=== PATIENT | female | born 1960 | race Caucasian/White ===

== ENCOUNTER 2021-03-04 18:06 | Emergency (ER) | payer BC, OTHER ==
--- OUTSIDE RECORDS SUMMARY | 2021-03-04 18:10 | XMS REPORT | Continuity of Care Document ---
:1960 Author Organization [facility] t Address [address] [place] [address] Care Team Providers Name Role Phone Asked, Pcp Primary Care Physician Unavailable Eduardo Hairston MD Attending Clinician Daysi RN Attending Clinician Unavailable Baudilio Owen MD Attending Clinician Mathieu AGUILAR Attending Clinician Unavailable Radiology Attending Clinician Unavailable José Manuel MCKEON Attending Clinician Unavailable Doctor Unassigned, Name Attending Clinician Unavailable Pcp, Does Not Have A Attending Clinician Nurse, Urgent Attending Clinician Unavailable Lab, Fam Pob I Attending Clinician Unavailable MANAN Attending Clinician Unavailable Payers Payer Name Policy Type Policy Effective Expiration Source Number Date Date [facility] [id number] 2019 [place] dist CHOICE/CHOICE 00:00:00 Hospital [id number] 2019-Prese ntHMO/PPO Problems Condition Condition Condition Status Onset Resolution Last Treating Co mments Source Name Details Category Date Date Treatment Clinician Date Functional Functional Disease Active 2018-07 M ethodi diarrhea diarrhea 09-15 00:00: Hospita 00 l History of History of Disease Active 2018-07 M ethodi Nelson-en-Y Nelson-en-Y 09-15 gastric gastric 00:00: Hospita bypass bypass 00 l Hx Hx Disease Active 2018-07 Methodi laparoscop laparoscop 09-15 ic ic 00:00: Hospita cholecyste cholecyste 00 l ctomy ctomy Common Common Disease Active 2018-07 Methodi bile duct bile duct 09-15 st dilation dilation 00:00: Hospit a 00 l Dysesthesi Dysesthesi Disease Active 0 M ethodi a of a of 02-27 multiple multiple 00:00: Hospit a sites sites 00 l Constituti Constituti Disease Active M ethodi onal onal 02-27 eosinophil eosinophil 00:00: Ho spita ia ia 00 l 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 00:00: Hospit a 00 l Pruritic Pruritic Disease Active 2015-07 Metho di disorder disorder 0-13 st 00:00: Hospita 00 l Ptosis of Ptosis of Disease Active 2015-07 Met hodi left left 0-13 st eyelid eyelid 00:00: Hospita 00 l Family Problem Active 2015-10-27 Memor ia history of 03:09:28 l malignant Family Angelique nn neoplasm history of of breast malignant neoplasm of breast Active Problem 10/27/2015 Carlos A Breast Encounter Problem Active 2015-10-27 Me moria for 03:09:28 l screening [place] mammogram Encounter for for malignant screening neoplasm mammogram of breast for malignant neoplasm of breast Active Problem 10/27/2015 Carlos A Breast Dense Problem Active 2015-10-27 Memor ia breast 03:09:28 l Dense [place] breast Active Problem 10/27/2015 [place] [facility] Allergies, Adverse Reactions, Alerts Allergy Allergy Status Severity Reaction(s) Onset Inactive Treating Comm ents Source Name Type Date Date Clinician Ondanset Propensi Active Method i fabrice ty to 02-08 st adverse 00:00: Hospita reaction 00 l s to drug Mirtazap Propensi Active Other (See 2015-07 Va thodi ine ty to Comments) 0 st adverse 00:00: Hospita reaction 00 l s to drug Family History Family Member Diagnosis Comments Start Date Stop Date Source Natural father Stroke [facility] Maternal aunt Breast cancer [facility] Maternal Other Congregational grandmother [facility] Natural mother Colon cancer [facility] Natural mother Colon polyps [facility] Natural mother Heart disease [facility] Family member [facility]ophageal cancer [facility] Family member Gallbladder disease [facility] Family member Pancreatic cancer [facility] Family member Stomach cancer [facility] Social History Social Habit Start Date Stop Date Quantity Comments Source Exposure to Not sure [facility] SARS-CoV-2 [facility] (event) Tobacco use and 2021-02-09 2021-02-09 Never used [facility] exposure 00:00:00 00:00:00 Hospital Alcohol intake 2021-02-09 2021-02-09 Ex-drinker [facility] 00:00:00 00:00:00 (finding) Hospital Alcohol Comment 2016-05-05 2016-05-05 occasional; Methodis t 00:00:00 00:00:00 rarely fruity Hospital drinks Baptism: 2015-10-19 2015-10-19 [facility] 00:00:00 00:00:00 Sex Ass[birth year] At [birth year] [facility] 00:00:00 00:00:00 [facility] Smoking Status Start Date Stop Date Source Never smoker [facility] Medications Ordered Filled Start Stop Current Ordering Indication Dosage Frequency Signature Comments Components Source Medication Medication Date Date Medication? Clinician (SIG) Name Name dronabinoL 2020- Yes [id number] 5mg Q.[id number] Take 1 Methodi (MARINOL) 5 02-13 08- [id number] capsule (5 st MG capsule 00:00: 04:59 3D mg total) H ospita 00 :00 by mouth 3 l (three) times a day before meals for 30 days. dronabinoL 2020- No [id number] 5mg Q.[id number] Take 1 Methodi (MARINOL) 5 02-08 07- [id number] capsule (5 st MG capsule 00:00: 00:00 3D mg total) H ospita 00 :00 by mouth 3 l (three) times a day before meals for 180 days. ascorbic Yes 1{tbl} QD Take 1 Metho di acid 7-[address] (VITAMIN C 19:57: mouth Hospit a ORAL) 32 nightly. l denosumab Yes Prolia 60 Met hodi (PROLIA) 60 7-12 mg/mL st mg/mL 19:57: subcutaneo Hospit a syringe 32 us syringe l syringe venlafaxine Yes 75mg QD Take 75 mg Methodi (EFFEXOR) 7-[address] 75 MG 19:57: daily. Hospita tablet 32 l busPIRone 0 Yes QD daily. Method i (BUSPAR) 15 7-12 st MG tablet 19:57: Hospita 32 l furosemide Yes 40mg QD 40 mg Method i (LASIX) 40 7-[address] mg tablet 19:57: Hospita 32 l ergocalcife Yes [id number] Q7D 50,000 Me thodi rol 7-[address] (VITAMIN 19:57: a week. Hospit a D2) 50,000 32 l unit capsule MULTIVIT-PA Yes 1 tab qd Me thodi NERALS/FERR 7-12 st OUS FUM 19:57: Hospita (MULTI 32 l VITAMIN ORAL) fexofenadin Yes 180mg QD 180 mg Met hodi e (JEM) 7-[address] 180 MG 19:57: Hospita tablet 32 l levothyroxi Yes 150ug QD Take 150 M ethodi ne 7-[address] (SYNTHROID, 19:57: mouth Hospi ta LEVOXYL) 32 every l 150 mcg morning. tablet promethazin Yes 25mg Take 25 mg Methodi e 7-[address] (PHENERGAN) 19:57: as needed H ospita 25 MG 32 for nausea l tablet or vomiting. Lactobac 2020- No Take by Metho di no.41/Bifid 7-12 07-[address] obact no.7 19:57: 00:00 Hospit a (PROBIOTIC- 32 :00 l 10 ORAL) citalopram No 40mg QD Take 40 mg Methodi (CeleXA) 40 7-12 07-[address] MG tablet 19:57: 00:00 daily. Hospi ta 32 :00 l granisetron [id number] 1mg Q12H Take 1 Methodi HCL 2-02 02-04 tablet (1 st (KYTRIL) 1 00:00: 05:59 mg total) H ospita mg tablet 00 :00 by mouth l every 12 (twelve) hours as needed for nausea or vomiting. dronabinoL 2019-07 [id number] 5mg Q.[id number] Take 1 Methodi (MARINOL) 5 217 07-17 [id number] capsule (5 st MG capsule 00:00: 00:00 3D mg total) H ospita 00 :00 by mouth 3 l (three) times a day before meals for 180 days. modafiniL No [id number] 200mg QD Take 1 Methodi (PROVIGIL) 8 02- tablet st 200 MG 00:00: 05:59 (200 mg Hospita tablet 00 :00 total) by l mouth daily for 180 days. dronabinoL No [id number] 5mg Q.5D Take 1 Method[facility] (MARINOL) 5 03-13-17 capsule (5 s t MG capsule 00:00: 00:00 mg total) H ospita 00 :00 by mouth 2 l (two) times a day before meals for 180 days. colesevelam Yes 1875mg Q.5D Take 3 Me thodi (WELCHOL) 5-[address] 625 mg 00:00: (1,875 mg Hospit a tablet 00 total) by l mouth 2 (two) times a day with meals. dronabinoL No [id number] 5mg Q.5D Take 1 Methodi (MARINOL) 5 2-20 08-21 capsule (5 s t MG capsule 00:00: 00:00 mg total) H ospita 00 :00 by mouth 2 l (two) times a day before meals for 180 days. granisetron 2018-07 [id number] 1mg Q12H Take 1 Methodi HCl 2-30 02-02 tablet (1 st (KYTRIL) 1 00:00: 00:00 mg total) H ospita mg tablet 00 :00 by mouth l every 12 (twelve) hours as needed for nausea or vomiting. OSPHENA 60 2018-07 Yes 60mg QD Take 60 mg M ethodi mg tablet 1-[address] 00:00: daily. Hospita 00 l fluticasone Yes SPRAY 2 Met hodi propionate 6-[address] (FLONASE) 00:00: EACH Hospita 50 00 NOSTRIL l mcg/actuati ONCE DAILY on nasal spray ALPRAZolam Yes as needed. M ethodi (XANAX) 1-23 st 0.25 MG 00:00: Hospita tablet 00 l Estradiol No Laila 1 tablet Me moria 4-05 Carlos A l 03:09: Gaurang Estradiol No Laila 1 tablet Me moria 4-05 Carlos A l 03:09: Vital Signs Vital Name Observation Time Observation Value Comments Source Systolic blood 2021-02-01 19:54:00 111 mm[Hg] [facility] pressure Diastolic blood 2021-02-01 19:54:00 51 mm[Hg] [facility] pressure Heart rate 2021-02-01 19:54:00 82 /min [facility] Body temperature 2021-02-01 19:54:00 36.22 Mine [facility] Body height 2021-02-01 19:54:00 160 cm [facility] Body weight 2021-02-01 19:54:00 63.05 kg [facility] BMI 2021-02-01 19:54:00 24.62 kg/m2 [facility] Heart Rate 2015-10-19 14:30:00 [facility] Diastolic (mm Hg) 2015-10-19 14:30:00 [facility] Systolic (mm Hg) 2015-10-19 14:30:00 Dominic ria Gaurang Weight 2015-10-19 14:30:00 [facility] Procedures Procedure Date / Time Performed Performing Clinician [facility] e PHOSPHORUS LEVEL 2021-02-01 21:12:[address] [facility] MAGNESIUM LEVEL 2021-02-01 21:12:00 [place], [facility] BASIC METABOLIC PANEL 2021-02-01 21:12:00 [facility] VOLTAGE-GATED POTASSIUM 2021-02-01 21:12:00 [facility] CHANNEL (VGKC) AB Plan of Care Planned Activity Planned Date Details Comments Source Future Scheduled Test COVID-19 VACCINE (1) [facility] [code = COVID-19 VACCINE (1)] Future Scheduled Test Hepatitis C screening [facility] (procedure) [code = 571355052] Future Scheduled Test Screening for malignant [facility] neoplasm of cervix (procedure) [code = 117154039] Future Scheduled Test BREAST CANCER SCREENING [facility] [code = BREAST CANCER SCREENING] Future Scheduled Test COLONOSCOPY SCREENING [facility] [code = COLONOSCOPY SCREENING] Future Scheduled Test SHINGLES VACCINES (#1) [facility] [code = SHINGLES VACCINES (#1)] Future Scheduled Test INFLUENZA VACCINE [code [facility] = INFLUENZA VACCINE] Encounters Start End Encounter Admission Attending Care Care Encounter Source Date/Time Date/Time Type Type Clinicians Facility Department ID 2021-02-12 2021-02-12 Travel 1.2.840.1 [id number] Methodi 00:00:00 00:00:[address] 3.430.2.7 0.2.7.3.698 Ho spita .3.276268 084.8 l .8 2021-02-12 2021-02-12 Thomas Hairston 1.2.840.1 [id number] Methodi 00:00:00 00:00:[address] Eduardo 3.430.2.7 Hospit a .3.883001 l .8 2021-02-06 2021-02-06 Thomas Hairston 1.2.840.1 [id number] Methodi 00:00:00 00:00:[address] Eduardo 3.430.2.7 Hospit a .3.830235 l .8 2021-02-01 2021-02-01 Hodan Hairston 1.2.840.1 [id number] 1017 Methodi 16:14:47 16:19:[address] Eduardo 3.430.2.7 Hospit a .3.843042 l .8 2021-02-01 2021-02-01 Office Yovanny, 1.2.840.1 [id number] 8387 Methodi 14:42:21 15:56:17 Visit Joseph 08871.1.[address] Eduardo 3.430.2.7 Hospit a .3.268555 l .8 2021-02-01 2021-02-01 Documentat Yovanny, 1.2.840.1 [id number] Methodi 00:00:00 00:00:00 ion Joseph 51604.1.[address] Eduardo 3.430.2.7 Hospit a .3.004662 l .8 2021-02-01 2021-02-01 Travel 1.2.840.1 1.2.228.496 7525 [id number] Methodi 00:00:00 00:00:[address] 3.430.2.7 0.2.7.3.698 Ho spita .3.655853 084.8 l .8 2021-02-01 2021-02-01 Outpatient [facility] [id number] [place] 00:00:00 00:00:00 JOSEPH [address] 2021-02-01 2021-02-01 Outpatient [facility] [id number] [place] 00:00:00 00:00:00 JOSEPH [address] 2021-02-01 2021-02-01 Outpatient [facility] [id number] 264 [place] 00:00:00 00:00:00 JOSEPH [address] 2020-12-31 2020-12-31 Travel 1.2.840.1 1.2.593.739 [id number] Methodi 00:00:00 00:00:[address] 3.430.2.7 0.2.7.3.698 Ho spita .3.909944 084.8 l .8 2020-12-31 2020-12-31 Telephone Yovanny, 1.2.840.1 [id number] Methodi 00:00:00 00:00:[address] Eduardo 3.430.2.7 Hospit a .3.697481 l .8 2020-11-23 2020-11-23 Travel 1.2.840.1 1.2.369.715 9005 [id number] Methodi 00:00:00 00:00:[address] 3.430.2.7 0.2.7.3.698 Ho spita .3.203697 084.8 l .8 2020-11-12 2020-11-12 Documentat Daysi, 1.2.840.1 [id number] [id number] Methodi 00:00:00 00:00:00 ion Tato 30572.1.[address] 3.430.2.7 Hospit a .3.461065 l .8 2020-10-15 2020-10-15 Telemedici Sherin, 1.2.840.1 [id number] Methodi 09:57:05 10:11:28 antonieta Astudillo [address]254.1.[address] 3.430.2.7 Hospit a .3.616064 l .8 2020-10-15 2020-10-15 Outpatient SHERIN [facility] [id number] [place] 00:00:00 00:00:00 SHADI [address] 2020-09-28 2020-09-28 Telephone Yovanny, 1.2.840.1 [id number] Methodi 00:00:00 00:00:[address] Eduardo 3.430.2.7 Hospit a .3.199961 l .8 2020-09-14 2020-09-14 Travel 1.2.840.1 1.2.756.841 1629 [id number] Methodi 00:00:00 00:00:[address] 3.430.2.7 0.2.7.3.698 Ho spita .3.466452 084.8 l .8 2020-09-07 2020-09-07 Telemedici Sherin 1.2.840.1 [id number] Methodi 09:38:12 10:06:19 antonieta Shadi Astudillo [address]506.1.[address] 3.430.2.7 Hospit a .3.759674 l .8 2020-09-07 2020-09-07 Outpatient [facility] [id number] [place] 00:00:00 00:00:00 SHADI [address] 2020-08-26 2020-08-26 Travel 1.2.840.1 1.2.736.008 0357 [id number] Methodi 00:00:00 00:00:[address] 3.430.2.7 0.2.7.3.698 Ho spita .3.888484 084.8 l .8 2020-08-25 2020-08-25 Eddy Conner.2.840.1 [id number] Methodi 00:00:00 00:00:00 J Carlos [address]12.1.[address] 3.430.2.7 Hospit a .3.727950 l .8 2020-08-17 2020-08-17 [facility] Radiology [facility] 1.2.840.114 [id number] 11:26:57 23:59:00 Encounter Arrey 350.1.13.10 Clint 4.2.7.2.686 [place] [id number] 800 2020-08-17 2020-08-17 [facility] Radiology [facility] 1.2.840.114 [id number] 11:25:05 11:25:05 Encounter Arrey 350.1.13.10 Clint 4.2.7.2.686 [place] [id number] 801 2020-08-15 2020-08-15 Tatiana Myers2.840.1 [id number] Methodi 00:00:00 00:00:[address] Eduardo 3.430.2.7 Hospit a .3.831497 l .8 2020-08-14 2020-08-14 Telephone Yovanny, 1.2.840.1 [id number] [id number] Methodi 00:00:00 00:00:[address] Eduardo 3.430.2.7 Hospit a .3.697599 l .8 2020-08-13 2020-08-13 Telephone José Manuel, 1.2.840.1 [id number] 2100 [id number] Methodi 00:00:00 00:00:[address] 3.430.2.7 Hospit a .3.868782 l .8 2020-08-12 2020-08-12 Hospital Radiology [facility] 1.2.840.114 [id number] [id number] 10:34:40 23:59:00 Encounter Hannah 350.1.13.10 [place] 4.2.7.2.686 [place] [id number] 800 2020-08-12 2020-08-12 Telephone Mathieu 1.2.840.1 [id number] Methodi 00:00:00 00:00:[address] [place] [address] 3.430.2.7 Hospit a .3.517233 l .8 2020-08-12 2020-08-12 Orders Doctor MIKALA 1.2.840.114 [id number] 00:00:00 00:00:00 Only Unassigned, MYA 350.1.13.10 [place] [facility] 4.2.7.2.686 [id number] 009 2020-07-22 2020-07-22 Thomas Hairston 1.2.840.1 [id number] Methodi 00:00:00 00:00:[address] Eduardo 3.430.2.7 Hospit a .3.784729 l .8 2020-07-14 2020-07-14 Travel 1.2.840.1 1.2.766.103 6437 [id number] Methodi 00:00:00 00:00:[address] 3.430.2.7 0.2.7.3.698 Ho spita .3.010788 084.8 l .8 2020-07-09 2020-07-09 Office Yovanny 1.2.840.1 [id number] 3589 Methodi 09:41:34 15:08:08 Visit Joseph 88283.1.[address] Eduardo 3.430.2.7 Hospit a .3.520041 l .8 2020-07-09 2020-07-09 Travel 1.2.840.1 1.2.307.873 0620 [id number] Methodi 00:00:00 00:00:[address] 3.430.2.7 0.2.7.3.698 Ho spita .3.630101 084.8 l .8 2020-07-09 2020-07-09 Outpatient [facility] [id number] 065 [place] 00:00:00 00:00:00 JOSEPH [address] 2020-03-13 2020-03-13 Telephone Mathieu 1.2.840.1 [id number] Methodi 00:00:00 00:00:00 J Carlos [address]260.1.[address] 3.430.2.7 Hospit a .3.287131 l .8 2020-03-02 2020-03-02 Outpatient [facility] [id number] [place] 00:00:00 00:00:00 JOSEPH [address] 2020-02-20 2020-02-20 Hospital Radiology [facility] 1.2.840.114 [id number] [id number] 16:00:00 23:59:00 Encounter Hannah 350.1.13.10 Clint 4.2.7.2.686 [place] [id number] 2020-02-16 2020-02-16 Telephone MIKALA Fine 1.2.882.334 6810 9097 00:00:00 00:00:00 Patient MYA 350.1.13.10 Does Not HOSPITAL 4.2.7.2.686 Have A [id number] 019 2020-02-16 2020-02-16 Letter Nurse, Bharathi [facility] 1.2.840.114 [id number] [id number] 00:00:00 00:00:00 (Out) Urgent HEALTH 350.1.13.10 [place] 4.2.7.2.686 [facility] [id number] Primary & 370 Specialty Care 2020-02-15 2020-02-15 Laboratory Lab, [facility] 1.2.840.114 [id number] 12:26:37 12:46:37 Only Fam Pob I Health 350.1.13.10 Arrey 4.2.7.2.686 Professio [id number] nal 044 Office [address] One 2019-11-14 2019-11-14 Outpatient HAIRSTON, [facility] [id number] [place] 00:00:00 00:00:00 JOSEPH [address] 2019-10-17 2019-10-17 Outpatient SHERIN, [facility] [id number] [place] 00:00:00 00:00:00 SHADI [address] 2019-05-23 2019-05-23 Outpatient MANAN, [facility] [id number] [place] 00:00:00 00:00:00 IVONE [address] 2015-10-19 2015-10-19 6 month fu nullFlavo [place] eaf [id number] Memoria 14:30:00 14:30:00 r Breast cad-4b16-a l Care, [place] [id number] Herm george [id number] 2015-10-19 2015-10-19 6 month fu nullFlavo [place] eaf [id number] Memoria 14:30:00 14:30:00 r Breast cad-4b16-a l Care, PA [id number] Herm george [id number] 2015-10-19 2015-10-19 Outpatient Carlos A [place] 535 80 [facility]Clinic 09:30:00 09:30:00 Breast Breast alWork s Care, PA Care, PA 2015-10-19 2015-10-19 Outpatient [place] 535 80 [facility]Clinic 09:30:00 09:30:00 Breast Breast alWork s Care, PA Care, PA 2015-03-20 2015-03-20 Lump in nullFlavo Carlos A aeac0a 22-5 Memoria 15:30:00 15:30:00 Lft breast r Breast 703-41c5-8 l normal Care, BRIAN [id number] [facility] george mammogram [id number] 2015-03-20 2015-03-20 Lump in nullFlavo Carlos A aeac0a 22-5 Memoria 15:30:00 15:30:00 Lft breast r Breast 703-41c5-8 l normal Care, BRIAN [id number] Jorden george mammogram 44b0ae Results This patient has no known results.
[2021-03-04 22:39] LABS: Absolute Lymphocytes (CBC) 2.1 K/uL (0.7-4.9); Basophils % 0.9 % (0-1.3); Hematocrit 35.4 % (36.0-45.0); MPV 9.5 fL (7.6-11.3); RBC Red Blood Cell Count 3.95 M/uL (3.86-4.86)
[2021-03-04 22:42] LABS: Protime INR 0.82
[2021-03-04 23:02] LABS: ALT/SGPT 19 U/L (12-78); AST/SGOT 9 U/L (15-37); Albumin 3.1 g/dL (3.4-5.0); Alkaline Phosphatase 55 U/L (45-117); BUN Blood Urea Nitrogen 9 mg/dL (7-18); Bicarbonate 30 mmol/L (21-32); Bilirubin Direct < 0.1 mg/dL (0-0.2); Bilirubin Total 0.3 mg/dL (0.2-1.0); Ferritin 125.2 ng/mL (8-388); Glucose Level 75 mg/dL (74-106); Magnesium 2.4 mg/dL (1.8-2.4); Potassium 3.6 mmol/L (3.5-5.1); Protein, Total 6.2 g/dL (6.4-8.2); Sodium Level 141 mmol/L (136-145); Troponin (Emerg Dept Use Only) < 0.02 ng/mL (0.0-0.045)
[2021-03-04 23:13] LABS: C-Reactive Protein < 2.90 mg/L (<3.00)
--- NOTE | 2021-03-05 01:44 | EDPHYS ---
Physician Documentation [facility] Name: Alayna Romero Age: 60 yrs Sex: Female : 1960 Arrival Date: 03/04/2021 Time: 18:08 Bed DIS8 Private MD: ED Physician Chano Rodgers HPI: 03/04 22:00 This 60 yrs old Female presents to ER via Ambulatory with complaints of Leg cp Swelling, Covid Pneumonia+. 22:00 The patient presents with pain, that is acute. cp 22:00 The complaints affect the left felix. Context: resulted from an unknown cause, the cp patient can fully bear weight, the patient is able to ambulate, with mild difficulty, Problem is a result from a previous injury: No. Onset: The symptoms/episode began/occurred today. Modifying factors: the symptoms are aggravated by palpation. Associated signs and symptoms: Pertinent positives: cough, shortness of breath. Treatment prior to arrival includes: no previous treatment. Severity of symptoms: in the emergency department the symptoms are unchanged. 22:00 Patient reports testing positive for COVID-19 on 02-24-2021. Patient reports taking 2 cp rounds of antibiotics and steroids prescribed by primary care physician. Patient states yesterday she had pain to front of right lower leg that resolved, now having pain to front of left lower leg. Patient c/o pain to mid back area, continued cough and shortness of breath. Patient currently using inhaler for shortness of breath. Historical: - Allergies: 20:16 Zofran; lp1 - Home Meds: 20:16 BuSpar Oral 30 mg daily [Active]; Celexa 40 mg Oral tab 1 tab once daily [Active]; lp1 Lasix Oral [Active]; Synthroid Oral [Active]; Xanax 0.25 mg Oral tab 1 tab twice a day [Active]; - PMHx: 20:16 Depression; lp1 - Immunization history:: Adult Immunizations up to date. - Social history:: Smoking status: Patient denies any tobacco usage or history of. ROS: 22:05 Constitutional: Negative for body aches, chills, fever, poor PO intake. cp 22:05 Eyes: Positive for blurry vision, Negative for discharge, pain, vision loss. cp 22:05 ENT: Negative for drainage from ear(s), ear pain, sore throat, difficulty swallowing, difficulty handling secretions. 22:05 Neck: Negative for pain with movement, pain at rest, stiffness. 22:05 Cardiovascular: Negative for chest pain, edema, palpitations. 22:05 Respiratory: Positive for cough, with no reported sputum, shortness of breath, Negative for wheezing. 22:05 Abdomen/GI: Negative for abdominal pain, nausea, vomiting, and diarrhea. 22:05 Back: Positive for pain at rest, of the left subscapular area and right subscapular area, Negative for injury or acute deformity. 22:05 Skin: Negative for cellulitis, rash. 22:05 Neuro: Negative for altered mental status, dizziness, headache, syncope, weakness. 22:05 All other systems are negative. Exam: 22:10 Constitutional: The patient appears in no acute distress, alert, awake, comfortable, cp non-diaphoretic, non-toxic, well developed, well nourished. 22:10 Head/Face: Normocephalic, atraumatic. cp 22:10 Eyes: Periorbital structures: appear normal, Conjunctiva: normal, no exudate, no injection, Sclera: no appreciated abnormality, Lids and lashes: appear normal, bilaterally. 22:10 ENT: External ear(s): are unremarkable, Nose: is normal, Mouth: Lips: moist, Oral mucosa: moist, Posterior pharynx: Airway: no evidence of obstruction, patent. 22:10 Neck: ROM/movement: is normal, is supple, without pain, no range of motions limitations. 22:10 Chest/axilla: Inspection: normal, Palpation: is normal, no crepitus, no tenderness. 22:10 Cardiovascular: Rate: normal, Rhythm: regular, Edema: is not appreciated, JVD: is not appreciated. 22:10 Respiratory: the patient does not display signs of respiratory distress, Respirations: normal, no use of accessory muscles, no retractions, labored breathing, is not present, Breath sounds: bronchial sounds, that are mild, are heard diffusely, decreased breath sounds, are not appreciated, stridor, is not appreciated, wheezing: is not appreciated. 22:10 Abdomen/GI: Exam negative for discomfort, distension, guarding, Inspection: abdomen appears normal. 22:10 Back: pain, that is mild, of the left subscapular area and right subscapular area, ROM is normal. 22:10 Musculoskeletal/extremity: DVT Exam: pain, that is mild, of the anterior aspect left lower leg, swelling, that is mild, of the anterior aspect left lower leg. 22:10 Skin: no rash present. 22:10 Neuro: Orientation: to person, place \T\ time. Mentation: is normal, Motor: moves all fours, strength is normal. 23:55 ECG was reviewed by the Attending Physician. cp Vital Signs: 20:24 BP 101 / 64; Pulse 79; Resp 16; Temp 98.5(TE); Pulse Ox 100% on R/A; Weight 63.5 kg; lp1 Height 5 ft. 3 in. (160.02 cm); Pain 6/10; 20:24 Body Mass Index 24.80 (63.50 kg, 160.02 cm) lp1 MDM: 21:44 Patient medically screened. melanie 22:00 Differential diagnosis: DVT, musculoskeletal pain, cellulitis, abscess, pulmonary cp embolism. 23:18 ED course: verbal report from [facility] that DVT study negative. cp 03/05 01:43 Data reviewed: vital signs, nurses notes, lab test result(s), EKG, radiologic studies, cp CT scan, plain films, I have discussed the patient's presentation/case with the attending Emergency Department Physician; and as a result, I will discharge patient. 01:43 Counseling: I had a detailed discussion with the patient and/or guardian regarding: the cp historical points, exam findings, and any diagnostic results supporting the discharge/admit diagnosis, lab results, radiology results, to return to the emergency department if symptoms worsen or persist or if there are any questions or concerns that arise at home. 01:43 Response to treatment: the patient's symptoms have mildly improved after treatment, and cp as a result, I will discharge patient. ED course: VSS. Patient appears non-toxic and no signs of respiratory distress. CT chest negative for pulmonary embolism. Will discharge to home for continued monitoring. 03/04 21:52 Order name: Basic Metabolic Panel; Complete Time: 23:15 cp 03/04 21:52 Order name: CBC with Diff; Complete Time: 23:15 cp 03/04 21:52 Order name: LFT's; Complete Time: 23:15 cp 03/04 21:52 Order name: Magnesium; Complete Time: 23:15 cp 03/04 21:52 Order name: PT-INR; Complete Time: 23:15 cp 03/04 21:52 Order name: Troponin (emerg Dept Use Only); Complete Time: 23:15 cp 03/04 21:52 Order name: XRAY Chest (1 view) cp 03/04 21:52 Order name: CRP; Complete Time: 23:15 cp 03/04 21:52 Order name: D-Dimer; Complete Time: 23:15 cp 03/04 21:52 Order name: Ferritin; Complete Time: 23:15 cp 08 22:33 Order name: US Extremity Venous W Compression Erick cp 03/04 23:16 Order name: CT Chest For PE Angio cp 03/04 21:52 Order name: EKG; Complete Time: 21:53 cp 03/04 21:52 Order name: Cardiac monitoring 03/04 21:52 Order name: EKG - Nurse/Tech; Complete Time: 23:56 cp 03/04 21:52 Order name: IV Saline Lock 03/04 21:52 Order name: Labs collected and sent 03/04 21:52 Order name: O2 Per Protocol 03/04 21:52 Order name: O2 Sat Monitoring cp 03/04 23:22 Order name: CT Head Brain wo Cont 03/05 01:42 Order name: INCENTIVE SPIROMETRY cp EC/12 23:55 Rate is 69 beats/min. Rhythm is regular. [place] interval is normal. QRS interval is normal. cp QT interval is normal. T waves are Inverted in leads aVL, aVR, V2. Interpreted by me. Reviewed by me. Administered Medications: No medications were administered Disposition: 03/05 02:00 Chart complete. cp 07:48 Co-signature as Attending Physician, Chano Rodgers MD I agree with the assessment and melanie plan of care. Disposition Summary: 03/05/21 01:43 Discharge Ordered Location: Home cp Problem: an ongoing problem cp Symptoms: have improved cp Condition: Stable cp Diagnosis - Dorsalgia, unspecified cp - Pain in left lower leg cp - Other visual disturbances cp - Other viral pneumonia cp - SARS-associated coronavirus as the cause of diseases classified elsewhere cp Followup: cp - With: Private Physician - When: 1 - 2 days - Reason: Worsening of condition Discharge Instructions: - Discharge Summary Sheet cp - Acute Back Pain, Adult cp - Blurred Vision, Adult cp - Musculoskeletal Pain cp - COVID-19 cp - Things to Know about the COVID-19 Pandemic - [facility] cp - 10 Things You Can Do to Manage Your COVID-19 Symptoms at Home - [facility] cp - COVID-19: Quarantine vs. Isolation - [facility] cp - Prevent the Spread of COVID-19 if You Are Sick - [facility] cp Forms: - Medication Reconciliation Form cp - Thank You Letter cp - Antibiotic Education cp - Prescription Opioid Use cp Prescriptions: - Diclofenac Sodium 75 mg Oral tablet,delayed release (DR/EC) - take 1 tablet by ORAL route 2 times per day; 20 tablet; Refills: 0, Product cp Selection Permitted Signatures: Dispatcher [employer] EDMS Chano Rodgers MD MD cha Pena, Laura RN RN lp1 Chano Curiel PA PA cp Corrections: (The following items were deleted from the chart) 03/04 22:51 21:53 Lower Extremity Arterial Bilat+US.RAD.BRZ ordered. EDMS EDMS 22:51 22:51 Extrem Venous W Compress Erick ordered. EDMS EDMS
--- NOTE | 2021-03-05 01:44 | ER ---
Nurse's Notes [facility] Name: Alayna Romero Age: 60 yrs Sex: Female : 1960 Arrival Date: 03/04/2021 Time: 18:08 Bed DIS8 Private MD: Diagnosis: Dorsalgia, unspecified;Pain in left lower leg;Other visual disturbances;Other viral pneumonia;SARS-associated coronavirus as the cause of diseases classified elsewhere Presentation: 03/04 20:13 Chief complaint: Patient states: Diagnosed with COVID on 02/24/21; Reports pain to right lp1 lower leg yesterday that has resolved, now reports pain to left lower leg, points to left upper felix area. 20:13 Method Of Arrival: Ambulatory lp1 20:16 Coronavirus screen: Positive results. Ebola Screen: No symptoms or risks identified at lp1 this time. Risk Assessment: Do you want to hurt yourself or someone else? Patient reports no desire to harm self or others. Onset of symptoms was March 04, 2021. 20:16 Acuity: VICKI 4 lp1 20:24 Initial Sepsis Screen: Does the patient meet any 2 criteria? No. Patient's initial lp1 sepsis screen is negative. Does the patient have a suspected source of infection? No. Patient's initial sepsis screen is negative. Triage Assessment: 20:17 General: Appears in no apparent distress. Behavior is calm, cooperative. Pain: lp1 Complains of pain in left felix. Neuro: No deficits noted. Respiratory: No deficits noted. Derm: Skin is pink, warm \T\ dry. Skin to bilateral lower legs, warm, dry; no significant swelling. Musculoskeletal: Circulation, motion, and sensation intact. Historical: - Allergies: 20:16 Zofran; lp1 - Home Meds: 20:16 BuSpar Oral 30 mg daily [Active]; Celexa 40 mg Oral tab 1 tab once daily [Active]; lp1 Lasix Oral [Active]; Synthroid Oral [Active]; Xanax 0.25 mg Oral tab 1 tab twice a day [Active]; - PMHx: 20:16 Depression; lp1 - Immunization history:: Adult Immunizations up to date. - Social history:: Smoking status: Patient denies any tobacco usage or history of. Screenin:17 Abuse screen: Denies threats or abuse. Denies injuries from another. Nutritional lp1 screening: No deficits noted. Tuberculosis screening: No symptoms or risk factors identified. Fall Risk None identified. Assessment: 21:39 General: Appears in no apparent distress. Behavior is calm, cooperative, appropriate 3 for age. Vital Signs: 20:24 BP 101 / 64; Pulse 79; Resp 16; Temp 98.5(TE); Pulse Ox 100% on R/A; Weight 63.5 kg; lp1 Height 5 ft. 3 in. (160.02 cm); Pain 6/10; 20:24 Body Mass Index 24.80 (63.50 kg, 160.02 cm) lp1 ED Course: 18:08 Patient arrived in ED. as 20:16 Triage completed. lp1 20:16 Arm band placed on right wrist. lp1 21:39 Patient has correct armband on for positive identification. Visitor at bedside. lh3 21:39 No provider procedures requiring assistance completed. 3 21:44 Chano Curiel PA is PHCP. cp 21:44 Chano Rodgers MD is Attending Physician. cp 22:30 XRAY Chest (1 view) In Process Unspecified. EDMS 22:51 US Extremity Venous W Compression Erick In Process Unspecified. EDMS 22:52 Megan Walsh RN is Primary Nurse. [facility] 13 00:34 CT Chest For PE Angio Sent. ch4 00:34 CT Head Brain wo Cont Sent. ch4 00:34 Inserted saline lock: 20 gauge in right antecubital area, using aseptic technique. ch4 00:53 CT Chest For PE Angio In Process Unspecified. EDMS 00:53 CT Head Brain wo Cont In Process Unspecified. EDMS 02:48 IV discontinued, bleeding controlled. 3 Administered Medications: No medications were administered Outcome: 01:43 Discharge ordered by . cp 02:47 Discharged to home ambulatory. 3 02:47 Condition: stable 02:47 Discharge instructions given to patient, Instructed on discharge instructions, medication usage, Demonstrated understanding of instructions, medications. 02:48 Patient left the ED. 3 Signatures: Dispatcher [employer] EDMS Amanda Lancaster Laura RN LAUREN 1 Chano Curiel PA PA cp Hardee, Latisha, RN RN [facility] Tati Chapman RN RN [facility]
[2021-03-05 02:58] VITALS: BP 101/64; TEMP 98.5; O2SAT 100
--- NOTE | 2021-03-05 08:29 | RAD REPORT ---
EXAM DESCRIPTION: US - Extrem Venous W Compress Erick - 03/04/2021 10:52 pm CLINICAL HISTORY: PAIN Bilateral leg edema and swelling. COMPARISON: Extrem Venous W Compress Erick dated 07/18/2016 TECHNIQUE: Real-time sonographic interrogation of the left and right lower extremity deep venous sys tems was performed. FINDINGS: Normal compressibility, flow augmentation, phasic flow and spontaneous flow is identified in both the left and right lower extremity deep venous systems. IMPRESSION: No sonographic evidence of left or right lower extremity deep venous thrombosis.
--- NOTE | 2021-03-05 08:49 | RAD REPORT ---
EXAM DESCRIPTION: RAD - Chest Single View - 03/04/2021 10:29 pm CLINICAL HISTORY: back pain;SOB Chest pain. COMPARISON: Chest Single View dated 08/14/2016; Chest Single View dated 07/19/2016; Chest Single View dated 07/18/2016; CHEST SINGLE VIEW dated 04/15/2010 FINDINGS: Portable technique limits examination quality. The lungs are grossly clear. The heart is normal in size. No displaced fractures. IMPRESSION: No acute intrathoracic process suspected.
--- NOTE | 2021-03-05 21:13 | RAD REPORT ---
EXAM DESCRIPTION: CT Angiography Chest With Intravenous Contrast CLINICAL HISTORY: The patient is 60 years old and is Female; back pain TECHNIQUE: Axial computed tomographic angiography images of the chest with intravenous contrast. S agittal and coronal reformatted images were created and reviewed. This CT exam was performed using one or more of the following dose reduction techniques: automated exposure control, adjustment of t he mA and/or kV according to patient size, and/or use of iterative reconstruction technique. MIP re constructed images were created and reviewed. COMPARISON: No relevant prior studies available. FINDINGS: Pulmonary arteries: Unremarkable. No pulmonary embolism. Aorta: No acute findings. No thoracic aortic aneurysm. Lungs: There are a few scattered nodular groundglass opacities in the lungs bilaterally. Scattered areas of atelectasis in the lungs bilaterally. Pleural space: Unremarkable. No significant effusion. No pneumothorax. Heart: Unremarkable. No cardiomegaly. No significant pericardial effusion. No evidence of R V dysfunction. Bones/joints: No acute fracture. No dislocation. Soft tissues: Unremarkable. Lymph nodes: Unremarkable. No enlarged lymph nodes. Stomach and bowel: Postsurgical changes in the stomach. * A single impression for all exams can be found at the end of this report EXAM DESCRIPTION: CT Head Without Intravenous Contrast CLINICAL HISTORY: The patient is 60 years old and is Female; back pain TECHNIQUE: Axial computed tomography images of the head/brain without intravenous contrast. Sagitt al and coronal reformatted images were created and reviewed. This CT exam was performed using one o r more of the following dose reduction techniques: automated exposure control, adjustment of the mA and/or kV according to patient size, and/or use of iterative reconstruction technique. COMPARISON: No relevant prior studies available. FINDINGS: Brain: Unremarkable. No hemorrhage. No significant white matter disease. No edema. Ventricles: Unremarkable. No ventriculomegaly. Bones/joints: Unremarkable. No acute fracture. Soft tissues: Unremarkable. Sinuses: Unremarkable as visualized. Mastoid air cells: Unremarkable as visualized. No mastoid effusion. * A single impression for all exams can be found at the end of this report IMPRESSION: CT Angiography Chest With Intravenous Contrast: 1. No acute finding. No evidence of pulmonary embolism. 2. There are a few scattered nodular groundglass opacities in the lungs bilaterally. Findings are nonspecific but can be seen with infectious, inflammatory, and neoplastic etiologies. CT Head Without Intravenous Contrast: No acute intracranial abnormality. Electronically signed by: Wiley Cruz MD 03/05/2021 1:27 AM CDT Due to temporary technical issues with the PACS/Fluency reporting system, reports are being signed by the in house radiologists without review as a courtesy to insure prompt reporting. The interpreting radiologist is fully responsible for the content of the report.
== END 2021-03-05 02:48 | disposition home or self-care (01) ==
LOC: ER 18:06
DX: M54.9 Dorsalgia, unspecified (principal); H53.8 Other visual disturbances; U07.1 COVID-19; J12.89 Other viral pneumonia; F32.9 Major depressive disorder, single episode, unspecified
CPT/HCPCS: 93005 ×2; 85025; 80048; 36415; 83735; 85610; 85379; 80076; 84484; 82728; 86140; 70450; 71275; 71045; 93970; 99283; Q9967